=== PATIENT | male | born 1990 | race Caucasian/White ===

== ENCOUNTER → 2021-07-29 | Day surgery (SDC) | payer OTHER ==
[~2021-07-29] VITALS: Ht 182.9 cm; Wt 88.5 kg
[~2021-07-29] MED LIST: EMLA CREAM5 GM TOP; HYDROCODON-ACE1 EAC2 PO; NORCO 5-325 TA1 EACH PO; ZOFRAN8 MG PO
[2021-07-29 07:57] LABS: HCT 46.2 % (42.0-52.0); HGB 16.4 g/dl (13.2-18.0); MCH 32.3 pg (25.0-31.0); MCHC 35.5 g/dL (32.0-36.0); MCV 90.9 fL (78.0-100.0); RBC 5.08 M/uL (4.70-6.00); RDW 11.6 % (11.5-14.0); WBC 5.5 K/uL (4.0-10.5)
[2021-07-29 08:42] LABS: ALBUMIN 4.5 g/dL (3.4-5.0); BILIRUBIN - TOTAL 0.9 mg/dL (0.2-1.0); BUN/CREAT RATIO (CALC) 17.3 RATIO; CREATININE 0.81 mg/dL (0.67-1.17); GLOBULIN (CALCULATION) 3.9 g/dL; POTASSIUM 4.1 mmol/L (3.5-5.1); TOTAL PROTEIN 8.4 g/dL (6.4-8.2)
== END | disposition home or self-care (01) ==
LOC: FAS 07-15 08:30
PROVIDERS: Surgery
DX: K64.4 Residual hemorrhoidal skin tags (principal); K64.8 Other hemorrhoids
CPT/HCPCS: 36415; 80053; J1100; J1885; J2250; J2405; J2704; J3010; J7120